=== PATIENT | male | born 1985 ===

== ENCOUNTER 2021-05-15 14:33 | Outpatient (CLI) | payer OTHER | END 2021-05-15 14:42 | disposition home or self-care (01) | LOC: LAB 14:33 | PROVIDERS: ATTEND Otolaryngology | DX: R50.9 Fever, unspecified (principal) ==

== ENCOUNTER 2024-06-14 06:48 | Day surgery (SDC) | payer OTHER ==
[2024-06-14] MEDS ORDERED: DEXAMETHASONE SODIUM PHOSP/PF 10 MG/ML VIAL ONE (11:40)
[2024-06-14] MEDS ORDERED: LIDOCAINE HCL 1%/EPINEPHRINE 20ML VIAL IJ ONE (12:30)
[2024-06-14] MEDS ORDERED: OXYMETAZOLINE HCL 15 ML NASAL DROPS NASAL ONE (12:30)
[2024-06-14] MEDS ORDERED: MORPHINE SULFATE 4 MG/ML VIAL IV ONE (14:25)
== END 2024-06-14 15:30 | disposition home or self-care (01) ==
LOC: CIR.AMB 06:48
PROVIDERS: ATTEND Otolaryngology
DX: J38.2 Nodules of vocal cords (principal); R49.0 Dysphonia; J38.3 Other diseases of vocal cords; Z91.030 Bee allergy status; J44.9 Chronic obstructive pulmonary disease, unspecified